=== PATIENT | female | born 1970 | race Caucasian/White ===

== ENCOUNTER → 2018-03-24 15:09 | Outpatient (CLI) | payer OTHER, SELFPAY ==
[2018-03-24 16:54] LABS: Blood Urea Nitrogen 14 mg/dL (7-17); Estimated Glomerular Filt Rate > 60.0 mL/min (>60)
== END ==
PROVIDERS: Visit Provider Podiatrist
DX: G57.62 Lesion of plantar nerve, left lower limb (principal)
CPT/HCPCS: 36415; 82565; 84520

== ENCOUNTER → 2018-03-30 09:07 | Outpatient (CLI) | payer OTHER, SELFPAY ==
--- NOTE | 2018-03-30 09:11 | DI.MRI.S_ITS ---
PROCEDURE: MR FOOT LT WO/W CON INDICATIONS: LESION OF PLANTAR NERVE, LEFT LOWER TECHNIQUE: Noncontrast long-axis T1 spin echo and T2 fast spin echo with fat saturation, short-axis T1 spin echo with and without fat saturation, and short-axis T2 fast spin echo with fat saturation. After the administration of contrast, short-axis T1 spin echo with fat saturation through the forefoot. COMPARISON: None. FINDINGS: Image quality: Excellent. Bones and joints: No bone marrow contusions or metatarsal stress fractures. The sesamoid bones appear in expected positions, without internal edema. Mild first metatarsophalangeal joint degeneration. Small first and second MTP joint effusions. No intraosseous lesions. Soft tissues: No enhancing lesions between the metatarsal heads to suggest Hooper's neuromas. Subcentimeter fluid collection between the second and third metatarsal heads, for example image 15 series 10 suggestive of bursitis. No associated enhancement. The visualized plantar foot muscles demonstrate normal signal and bulk. Visualized flexor and extensor tendons appear intact, without tenosynovitis. IMPRESSION: No definite focal abnormal soft tissue enhancement. Subcentimeter fluid collection between the second and third metatarsal heads suggestive intermetatarsal bursitis (versus synovial/ganglion cyst). Mild first MTP joint degeneration. Small first and second MTP joint effusions. Dictated by: Jay Guerrero M.D. on 03/30/2018 at 11:46 Approved by: Jay Guerrero M.D. on 03/30/2018 at 12:34
== END ==
PROVIDERS: Visit Provider Podiatrist
DX: G57.62 Lesion of plantar nerve, left lower limb (principal); M19.072 Primary osteoarthritis, left ankle and foot; M25.475 Effusion, left foot
CPT/HCPCS: 73720

== ENCOUNTER → 2018-06-24 14:38 | Outpatient (CLI) | payer OTHER, SELFPAY ==
--- NOTE | 2018-06-24 | DI.US.S_ITS ---
LIMITED ULTRASOUND OF LEFT BREAST AND AXILLA: 06/24/2018 CLINICAL: Palpable left breast lump by physician. Comparison is made to exams dated: 06/24/2018 mammogram, 10/07/2013 mammogram, 07/29/2012 mammogram, and 02/26/2006 mammogram - [facility]. Color flow and real-time ultrasound of the left breast 10-2 o'clock, and left axilla regions were performed on the areas of interest. Villafuerte scale images of the real-time examination were reviewed. The breast tissue is homogeneous fibroglandular in the left breast. There is 0.7 cm x 0.8 cm x 0.7 cm questionable irregular area of fibroglandular tissue with an indistinct margin in the left breast at 1 o'clock middle depth. This irregular area of fibroglandular tissue is hypoechoic with internal echoes. This was not seen on the prior mammogram same day. Color flow imaging demonstrates that there is vascularity present but also present in adjacent more normal appearing tissue. Slight changes in scan angulation resulted in this structure no longer being visible, from different approaches of insonation. No abnormalities were seen sonographically in the left axilla. IMPRESSION: INCOMPLETE: NEEDS ADDITIONAL IMAGING EVALUATION The 0.7 cm x 0.8 cm x 0.7 cm irregular area of fibroglandular tissue in the left breast is indeterminate om etiology and did not persist with slight changes in sonographic angulation. This is in the general area of recent clinical concern. Note is made of a maternal history of breast carcinoma. It is uncertain whether this is a true finding, but the clinician reports subtle palpable abnormality in this general area. An MRI is recommended. This exam was interpreted at Station ID: [id number]. Electronically Signed By: Matthew Santos M.D. [facility]/:06/25/2018 09:15:10 Entry: - 06/25/2018 09:15:10 letter sent: Need MRI Ultrasound BI-RADS: 0 Indeterminate
--- NOTE | 2018-06-24 | DI.MG.S_ITS ---
BILATERAL DIGITAL DIAGNOSTIC MAMMOGRAM 3D/2D: 06/24/2018 CLINICAL: Patient and patient's referring provider identified a palpable abnormality in the upper left breast near 11-1 o'clock positions. Comparison is made to exams dated: 10/07/2013 mammogram, 07/29/2012 mammogram, and 02/26/2006 mammogram - [facility]. There are scattered fibroglandular elements in both breasts. There is no underlying mammographic abnormality of the upper left breast. No significant masses, calcifications, or other findings are seen in either breast. IMPRESSION: INCOMPLETE: NEEDS ADDITIONAL IMAGING EVALUATION No mammographic abnormality to correlate with the site of the patient's reported focal palpable abnormality in the upper left breast. Targeted diagnostic ultrasound recommended for further evaluation, which will be performed immediately following this exam. This exam was interpreted at Station ID: [id number]. NOTE: For mammograms, a report in lay terms will be sent to the patient. Approximately 15% of breast malignancies will not be visualized mammographically. In the management of a palpable breast mass, a negative mammogram must not discourage biopsy of a clinically suspicious lesion. Electronically Signed By: Deny Colindres M.D. ecl/:06/24/2018 18:06:40 letter sent: Additional Imaging Needed ACR BI-RADS Category 0: Incomplete 3340F
== END ==
PROVIDERS: Visit Provider Internal Medicine
DX: R92.8 Other abnormal and inconclusive findings on diagnostic imaging of breast (principal); N63.22 Unspecified lump in the left breast, upper inner quadrant; Z80.3 Family history of malignant neoplasm of breast
CPT/HCPCS: 76642; 77066; G0279

== ENCOUNTER → 2018-07-27 07:32 | Outpatient (CLI) | payer OTHER, SELFPAY ==
--- NOTE | 2018-07-27 | DI.MRI.S_ITS ---
BREAST MRI OF BOTH BREASTS: 07/27/2018 CLINICAL: Left breast mass. PROCEDURE: MR BREAST BI WO/W CON INDICATIONS: LEFT BREAST MASS TECHNIQUE: The patient was placed prone in a dedicated breast imaging coil. Precontrast axial STIR and 3D FLASH without fat saturation sequences were obtained. Both before and after bolus injection of contrast, sequential 1-minute axial 3D FLASH with fat saturation sequences for 3 time points, with subtraction images and maximum intensity projections (MIP's) generated. Delayed sagittal FLASH images with fat saturation were also obtained. Computer-aided detection, including computer algorithm analysis of MRI image data for lesion detection and characterization, pharmacokinetic analysis, with further physician review for interpretation, was performed. COMPARISON: [facility], , BREAST LIMITED, 06/24/2018, 15:32. FINDINGS: Image quality: Excellent. There is minimal background parenchymal enhancement. Right breast: No suspicious enhancement or mass lesions within the right breast. Left breast: No suspicious enhancement or mass lesions within the left breast. Specifically, there is no abnormality within the left breast at 1:00 to correspond with the questionable ultrasound abnormality on the comparison study dated 06/24/18. Additionally, there is no suspicious abnormality in the upper portion of the left breast to correspond with the questionable palpable abnormality by the referring clinician. Miscellaneous: No axillary adenopathy. No intramammary adenopathy. Limited visualization of the mediastinum, lungs, and upper abdomen are unremarkable. IMPRESSION: NEGATIVE 1. No suspicious lesions to correspond with the questionable palpable abnormality or ultrasound abnormality as described above. Clinical followup recommended. A 1 year screening mammogram is recommended. This exam was interpreted at Station ID: [id number]. Electronically Signed By: Bertha Mathew M.D. lk/:07/28/2018 08:08:11 Entry: - 07/28/2018 08:08:11 ACR BI-RADS Category 1: Negative 3341F
== END ==
PROVIDERS: PCP Internal Medicine; Visit Provider Internal Medicine
DX: N63.21 Unspecified lump in the left breast, upper outer quadrant (principal)
CPT/HCPCS: 77049; A9579

== ENCOUNTER → 2020-03-11 10:47 | Outpatient (CLI) | payer OTHER, SELFPAY ==
--- NOTE | 2020-03-11 | DI.MG.S_ITS ---
BILATERAL DIGITAL SCREENING MAMMOGRAM 3D/2D WITH CAD: 03/11/2020 CLINICAL: Routine screening. Comparison is made to exams dated: 06/24/2018 mammogram, 10/07/2013 mammogram, 07/29/2012 mammogram, 06/24/2018 ultrasound, and 07/27/2018 breast MRI - [facility]. There are scattered fibroglandular elements in both breasts. Current study was also evaluated with a Computer Aided Detection (CAD) system. No significant masses, calcifications, or other findings are seen in either breast. There has been no significant interval change. IMPRESSION: NEGATIVE There is no mammographic evidence of malignancy. A 1 year screening mammogram is recommended. This exam was interpreted at Station ID: [id number]. NOTE: For mammograms, a report in lay terms will be sent to the patient. Approximately 15% of breast malignancies will not be visualized mammographically. In the management of a palpable breast mass, a negative mammogram must not discourage biopsy of a clinically suspicious lesion. Electronically Signed By: Renny mccall/tiffanie:03/13/2020 11:07:50 letter sent: Normal Exam ACR BI-RADS Category 1: Negative 3341F
== END ==
PROVIDERS: PCP Internal Medicine; Referring Provider Internal Medicine; Visit Provider Internal Medicine
DX: Z12.31 Encounter for screening mammogram for malignant neoplasm of breast (principal)
CPT/HCPCS: 77063; 77067

== ENCOUNTER → 2021-04-24 16:12 | Outpatient (CLI) | payer OTHER, SELFPAY ==
--- NOTE | 2021-04-24 | DI.MG.S_ITS ---
BILATERAL DIGITAL SCREENING MAMMOGRAM 3D/2D WITH CAD: 04/24/2021 CLINICAL: Routine screening. Family history of breast cancer. Comparison is made to exams dated: 06/24/2018 ultrasound, 06/24/2018 mammogram, 10/07/2013 mammogram, and 07/29/2012 mammogram - [facility]. There are scattered fibroglandular elements in both breasts. Current study was also evaluated with a Computer Aided Detection (CAD) system. No significant masses, calcifications, or other findings are seen in either breast. There has been no significant interval change. IMPRESSION: NEGATIVE There is no mammographic evidence of malignancy. A 1 year screening mammogram is recommended. This exam was interpreted at Station ID: [id number]. NOTE: For mammograms, a report in lay terms will be sent to the patient. Approximately 15% of breast malignancies will not be visualized mammographically. In the management of a palpable breast mass, a negative mammogram must not discourage biopsy of a clinically suspicious lesion. Electronically Signed By: Nael Ozuna acr/tiffanie:04/24/2021 17:26:47 letter sent: Normal Exam ACR BI-RADS Category 1: Negative 3341F
== END ==
PROVIDERS: PCP Internal Medicine; Referring Provider Internal Medicine; Visit Provider Internal Medicine
DX: Z12.31 Encounter for screening mammogram for malignant neoplasm of breast (principal); Z80.3 Family history of malignant neoplasm of breast
CPT/HCPCS: 77063; 77067

== ENCOUNTER → 2021-05-03 11:48 | Outpatient (CLI) | payer OTHER, SELFPAY ==
[2021-05-03 12:40] LABS: COVID19 -Nasal RAPID Negative (Negative)
== END ==
PROVIDERS: PCP Internal Medicine; Referring Provider Nurse Practitioner Family; Visit Provider Nurse Practitioner Family
DX: Z01.812 Encounter for preprocedural laboratory examination (principal); Z20.822 Contact with and (suspected) exposure to COVID-19
CPT/HCPCS: 87635

== ENCOUNTER 2021-05-04 12:40 | Day surgery (SDC) | payer OTHER, SELFPAY ==
--- NOTE | 2021-05-04 11:57 | PM.PREOP ---
Pre-operative Note COVID-19 COVID-19 status: Negative Result date/Date tested (Pos, Neg/Pending): 05/03/21 Interval Note History & Physical reviewed/Exam performed by Physician: Yes Changes to H&P: No ASA Class (for procedural sedation): II
--- NOTE | 2021-05-04 11:58 | PM.OP.COLON ---
Operative Date/Time/Diagnoses Date of procedure: 05/04/21 Procedure Notes SCOAP/Timeout: 1:39 p.m. Procedure in detail: ENDOSCOPIST: Kellen Hatfield MD Sedation RN: Ryann Cullen RN Sedation start time: 1:40 p.m. Sedation end time: 2:05 p.m. PROCEDURE: Colonoscopy INDICATIONS: 1. Screening for colon cancer MEDICATION: Levsin 0.125 mg sublingual, incremental doses of Versed and fentanyl until appropriate level sedation achieved. ASA CLASS: 2 CECAL WITHDRAWAL TIME: 7 minutes COMPLICATIONS: None. EXTENT OF PROCEDURE: Cecum. QUALITY OF PREP: Good with portions of liquid stool. PROCEDURE: Prior to insertion of the colonoscope, a digital rectal examination was accomplished with circumferential palpation of the distal rectal mucosa without significant findings being noted. The high-definition pediatric colonoscope was passed into the rectum in the usual fashion and advanced over to the cecum without difficulty. The ileocecal valve, appendiceal stoma, and medial wall all could be inspected and no abnormalities were seen. ASCENDING COLON: As the colonoscope was withdrawn, care was taken to expose and inspect the haustral folds and no abnormalities were seen. HEPATIC FLEXURE: Normal, no polyps, diverticula or other abnormalities. TRANSVERSE COLON: Normal, no polyps, diverticula or other abnormalities. DESCENDING COLON: Normal, no polyps, diverticula or other abnormalities. SIGMOID COLON: Normal, no polyps, diverticula or other abnormalities. RECTUM: Normal. J maneuver was produced. There was no significant perianal disease. The J maneuver was broken. The remainder of the rectum was inspected and there was no external hemorrhoid disease. The scope was withdrawn. IMPRESSION: 1. Normal colonoscopy PLAN: 1. Repeat colonoscopy in 10 years. The possibility of a missed lesion including a malignancy has been discussed with the patient previously. Potential alarm symptoms have been discussed and should be reported immediately.
[2021-05-04] MEDS: HYOSCYAMINE 0.125 MG TABLET PO (13:12)
[2021-05-04 13:15] VITALS: BP 146/94; PULSE 82; RESP 16; TEMP 37.2; O2SAT 100; BMI 30.2
[2021-05-04] MEDS: LACTATED RINGERS 1,000 ML 84 ML IV (13:30)
[2021-05-04 13:33] VITALS: BMI 30.2
[2021-05-04] MEDS: fentaNYL 250 MCG/5 ML INJ IV (13:56)
[2021-05-04] MEDS: MIDAZOLAM 5 MG/5 ML VIAL IV (13:56)
[2021-05-04 14:09] VITALS: BP 128/81; PULSE 93; RESP 18; TEMP 36.4; O2SAT 99
[2021-05-04 14:14] VITALS: BP 129/80; PULSE 65; RESP 22; O2SAT 100
[2021-05-04 14:19] VITALS: BP 129/81; PULSE 70; RESP 17; O2SAT 100
[2021-05-04 14:25] VITALS: BP 123/80; PULSE 72; RESP 18; O2SAT 100
[2021-05-04 14:59] VITALS: BP 115/78; PULSE 84; RESP 16; TEMP 36.8; O2SAT 100
== END 2021-05-04 15:05 | disposition home or self-care (01) ==
PROVIDERS: PCP Internal Medicine; Referring Provider Student in an Organized Health Care Education/Training Program; Visit Provider Student in an Organized Health Care Education/Training Program
PROC: 0DJD8ZZ Inspection of Lower Intestinal Tract, Via Natural or Artificial Opening Endoscopic (ICD-10-PCS; CPT 45378; principal; 2021-05-04 13:45)
DX: Z12.11 Encounter for screening for malignant neoplasm of colon (principal)
CPT/HCPCS: 45378; 81025; J2250; J3010

== ENCOUNTER → 2021-05-19 19:01 | Outpatient (CLI) | payer OTHER, SELFPAY | PROVIDERS: PCP Internal Medicine; Visit Provider Physician Assistant | DX: N89.8 Other specified noninflammatory disorders of vagina (principal) | CPT/HCPCS: 87210 ==

== ENCOUNTER → 2022-06-20 16:09 | Outpatient (CLI) | payer OTHER, SELFPAY ==
--- NOTE | 2022-06-20 | DI.MG.S_ITS ---
BILATERAL DIGITAL SCREENING MAMMOGRAM 3D/2D WITH CAD: 06/20/2022 CLINICAL: Routine screening. Family history of breast cancer. Comparison is made to exams dated: 04/24/2021 mammogram, 03/11/2020 mammogram, 07/27/2018 breast MRI, 06/24/2018 mammogram, and 10/07/[address] mamm[address] - [facility]. There are scattered areas of fibroglandular density in both breasts (category b / 25%-50% glandular tissue). Current study was also evaluated with a Computer Aided Detection (CAD) system. No significant masses, calcifications, or other findings are seen in either breast. There has been no significant interval change. IMPRESSION: NEGATIVE There is no mammographic evidence of malignancy. A 1 year screening mammogram is recommended. Based on the Tyrer Cuzick model (a risk assessment model) the patient's lifetime risk is 10.0% and her 10 year risk is 2.6%. According to the ACR, ACS, and NCCN guidelines, an annual breast MRI exam along with mammogram is recommended if the patient's lifetime risk is 20% or greater. This exam was interpreted at Station ID: [id number]. NOTE: For mammograms, a report in lay terms will be sent to the patient. Approximately 15% of breast malignancies will not be visualized mammographically. In the management of a palpable breast mass, a negative mammogram must not discourage biopsy of a clinically suspicious lesion. Electronically Signed By: Renny mccall/tiffanie:06/21/2022 08:49:51 letter sent: Normal Exam ACR BI-RADS Category 1: Negative 3341F
== END ==
PROVIDERS: PCP Internal Medicine; Referring Provider Internal Medicine; Visit Provider Internal Medicine
DX: Z12.31 Encounter for screening mammogram for malignant neoplasm of breast (principal); Z80.3 Family history of malignant neoplasm of breast
CPT/HCPCS: 77063; 77067

== ENCOUNTER → 2023-09-03 14:00 | Outpatient (CLI) | payer OTHER, SELFPAY ==
--- NOTE | 2023-09-03 14:01 | DI.MG.S_ITS ---
BILATERAL DIGITAL SCREENING MAMMOGRAM 3D/2D WITH CAD: 09/03/2023 CLINICAL: Routine screening. Family history of breast cancer. Comparison is made to exams dated: 06/20/2022 mammogram, 03/11/2020 mammogram, and 04/24/2021 mammogram - [facility]. There are scattered areas of fibroglandular density in both breasts (category b / 25%-50% glandular tissue). Current study was also evaluated with a Computer Aided Detection (CAD) system. No significant masses, calcifications, or other findings are seen in either breast. There has been no significant interval change. IMPRESSION: NEGATIVE There is no mammographic evidence of malignancy. A 1 year screening mammogram is recommended. Based on the Tyrer Cuzick model (a risk assessment model) the patient's lifetime risk is 10.1% and her 10 year risk is 2.7%. According to the ACR, ACS, and NCCN guidelines, an annual breast MRI exam along with mammogram is recommended if the patient's lifetime risk is 20% or greater. This exam was interpreted at Station ID: [id number]. NOTE: For mammograms, a report in lay terms will be sent to the patient. Approximately 15% of breast malignancies will not be visualized mammographically. In the management of a palpable breast mass, a negative mammogram must not discourage biopsy of a clinically suspicious lesion. Electronically Signed By: Maryan Irizaryr M.D., Ph.D. rudi/tiffanie:09/03/2023 14:57:40 letter sent: Normal Exam ACR BI-RADS Category 1: Negative 3341F
== END ==
LOC: MAMMO 14:01
PROVIDERS: PCP Internal Medicine; Referring Provider Internal Medicine; Visit Provider Internal Medicine
DX: Z12.31 Encounter for screening mammogram for malignant neoplasm of breast (principal); Z80.3 Family history of malignant neoplasm of breast; R92.323 Mammographic fibroglandular density, bilateral breasts
CPT/HCPCS: 77063; 77067

== ENCOUNTER → 2023-10-05 11:47 | Outpatient (CLI) | payer OTHER, SELFPAY | PROVIDERS: PCP Internal Medicine; Visit Provider Physician Assistant Surgical | DX: J02.9 Acute pharyngitis, unspecified (principal) | CPT/HCPCS: 87070 ==

== ENCOUNTER → 2023-10-05 12:17 | Outpatient (CLI) | payer OTHER, SELFPAY ==
--- NOTE | 2023-10-05 12:19 | DI.RAD.S_ITS ---
PROCEDURE: XR CHEST 2V INDICATIONS: Cough, rhonchi TECHNIQUE: 2 views of the chest were acquired. COMPARISON: None. FINDINGS: Surgical changes and devices: None. Lungs and pleura: An incomplete inspiratory result is noted, causing a crowded appearance to the lung markings. No focal infiltrates are seen. Mild generalized interstitial prominence can be seen. No pneumothorax or significant pleural effusions are seen. Mediastinum: Mediastinal contours are normal. Heart size is normal. Bones and chest wall: No suspicious bony abnormalities. Soft tissues appear unremarkable. IMPRESSION: No focal infiltrates are seen. Mild generalized interstitial prominence can be seen, which may be related to pulmonary edema. However, no cardiomegaly is seen. Dictated by: Elvis An M.D. on 10/05/2023 at 11:30 Approved by: Elvis An M.D. on 10/05/2023 at 11:31
== END ==
PROVIDERS: PCP Internal Medicine; Referring Provider Physician Assistant Surgical; Visit Provider Physician Assistant Surgical
DX: J02.9 Acute pharyngitis, unspecified (principal); R09.89 Other specified symptoms and signs involving the circulatory and respiratory systems; R05.9 Cough, unspecified
CPT/HCPCS: 71046; 87070

== ENCOUNTER → 2024-09-24 13:18 | Outpatient (CLI) | payer OTHER, SELFPAY ==
--- NOTE | 2024-09-24 13:19 | DI.MG.S_ITS ---
MM screening mammo BI: 09/24/2024. BI-RADS: 1 CLINICAL: 54-year old female for bilateral screening mammogram. Tyrer-Cuzick lifetime risk of 19.4%. Current reported family history of breast cancer: mother. PRIOR EXAMS 09/03/2023, 06/20/2022, 04/24/2021, 03/11/2020, 07/27/2018, 06/24/2018. MAMMOGRAPHY TECHNIQUE: 2D and 3D (tomosynthesis) digital mammographic views obtained, with additional images as needed for full coverage. Current study was also evaluated with a Computer Aided Detection (CAD) system. DENSITY A. The breasts are almost entirely fatty. MAMMOGRAPHY FINDINGS Bilateral: No suspicious mass, asymmetry, microcalcification, or other abnormality seen. IMPRESSION: * No evidence of malignancy. RECOMMENDATIONS Bilateral * Annual screening mammography. OVERALL ASSESSMENT CATEGORY BI-RADS-1: Negative. The [employer] recommends annual screening mammography beginning at age 40 for women with average risk of breast cancer. ELECTRONICALLY SIGNED: Savage Duran M.D. on 09/24/2024 at 10:55:50 PM PT Interpreting Station ID: [id number]
== END ==
PROVIDERS: PCP Internal Medicine; Referring Provider Internal Medicine; Visit Provider Internal Medicine
DX: Z12.31 Encounter for screening mammogram for malignant neoplasm of breast (principal); Z80.3 Family history of malignant neoplasm of breast; R92.313 Mammographic fatty tissue density, bilateral breasts
CPT/HCPCS: 77063; 77067